=== PATIENT | female | born 1965 | race Caucasian/White ===

== ENCOUNTER 2019-11-14 08:14 | Outpatient (CLI) | payer OTHER, SELFPAY ==
--- NOTE | 2019-11-14 08:20 | MM_ITS ---
WS: [id number] BILATERAL SCREENING DIGITAL MAMMOGRAM WITH CAD HISTORY: SCREENING COMPARISON: 09/03/2018 and 06/13/2015 Bilateral CC and MLO views submitted. Computer aided detection analyzed. Breast composition: The breasts are heterogeneously dense, which may obscure small masses. No suspici ous masses, microcalcifications or architectural distortion. Benign calcification in the posterior RI GHT breast is stable. MM/[place] [id number] IMPRESSION: BI-RADS: 2-Benign FOLLOW UP: 1 Year Follow-up
== END 2019-11-14 08:15 | disposition home or self-care (01) ==
LOC: RADSHAW 08:14
PROVIDERS: PCP Family Medicine; Visit Provider Nurse Practitioner Family
DX: Z12.31 Encounter for screening mammogram for malignant neoplasm of breast (principal)
CPT/HCPCS: 77067

== ENCOUNTER 2020-01-04 10:15 | Outpatient (CLI) | payer SELFPAY ==
--- NOTE | 2020-01-04 10:23 | CT_ITS ---
WS: [id number] CT CHEST TECHNIQUE: Contrast enhanced CT of the chest with coronal and sagittal reformatted images. CLINICAL INFORMATION: PNEUMOTHORAX COMPARISON: CT November 2018, April 2018, September 2017 DLP: 583.[address] scans at [facility] use at least one of these dose optimization techniques: automat ed exposure control; mA and/or kV adjustment per patient size (includes targeted exams where dose is matched to clinical indication); or iterative reconstruction. FINDINGS: Advanced chronic emphysematous changes. Multiple previously described bilateral subcentimeter noncalc ified pulmonary nodules are stable compared to . New patchy groundglass opacity in the right upper lobe anteriorly. This is likely infectious or inflammatory. New pulmonary opacity left lower lo be measuring 7 mm. No mediastinal or hilar lymphadenopathy. No axillary lymphadenopathy. Aortic calcification. Proximal main pulmonary arteries are normal. Partially visualized hepatic cysts . Thoracic kyphosis. CT/CT chest w con* [id number] IMPRESSION: 1. New hazy ground glass opacity in the right upper lobe anteriorly with sligh t nodularity measuring 11 x 8 mm. This may be infectious or inflammatory. Recom mend 3 month follow-up. 2. New noncalcified nodular opacity left lower lobe measuring 7 mm. Recommend 3 month follow-up. 3. Additional subcentimeter noncalcified pulmonary nodules are stable. 4. No mediastinal or hilar lymphadenopathy. 5. Advanced chronic emphysematous changes. 6. Stable left hepatic cyst.
[2020-01-04] MEDS: iohexol 300 mg/mL 100 mL Btl IV (11:00)
== END 2020-01-04 10:16 | disposition home or self-care (01) ==
LOC: RADWPI 10:20
PROVIDERS: Family Provider Family Medicine; PCP Family Medicine; Visit Provider Thoracic Surgery (Cardiothoracic Vascular Surgery)
DX: J93.9 Pneumothorax, unspecified (principal); K76.89 Other specified diseases of liver; R91.8 Other nonspecific abnormal finding of lung field
CPT/HCPCS: 71260; Q9967

== ENCOUNTER 2021-01-17 10:11 | Outpatient (CLI) | payer OTHER, SELFPAY ==
--- NOTE | 2021-01-17 10:18 | MM_ITS ---
WS: [id number] BILATERAL DIGITAL SCREENING MAMMOGRAPHY WITH CAD CLINICAL INFORMATION: SCREENING HISTORY: Screening mammogram. No current complaints. COMPARISON: November 14, 2019 TECHNIQUE: Bilateral CC and MLO views. FINDINGS: The breasts are composed of heterogeneous fibroglandular density tissue, which can limit the detectio n of small underlying mass lesions. Benign punctate calcification right breast is stable. Stable dens e subareolar breast tissue. A few punctate calcifications right subareola. No suspicious mass, asymme try, calcifications, or architectural distortion. No evidence of malignancy. MM/[place] [id number] IMPRESSION: BI-RADS: 2-Benign FOLLOW UP: 1 Year Follow-up Recommend return to annual screening mammography.
== END 2021-01-17 10:12 | disposition home or self-care (01) ==
PROVIDERS: PCP Family Medicine; Visit Provider Nurse Practitioner Family
DX: Z12.31 Encounter for screening mammogram for malignant neoplasm of breast (principal)
CPT/HCPCS: 77067

== ENCOUNTER 2022-04-09 12:01 | Outpatient (CLI) | payer MEDICAID, SELFPAY ==
--- NOTE | 2022-04-09 12:10 | MM_ITS ---
WS: [id number] BILATERAL 3D TOMOSYNTHESIS DIGITAL SCREENING MAMMOGRAPHY WITH CAD CLINICAL INFORMATION: SCREENING HISTORY: Screening mammogram. No current complaints. COMPARISON: January 17 2021 TECHNIQUE: Bilateral CC and MLO views. FINDINGS: The breasts are composed of heterogeneous fibroglandular density tissue, which can limit the detectio n of small underlying mass lesions. No suspicious mass, asymmetry, calcifications, or architectural d istortion. No evidence of malignancy. A few incidental punctate calcifications. MM/[place] [id number] IMPRESSION: BI-RADS: 2-Benign FOLLOW UP: 1 Year Follow-up Recommend return to annual screening mammography.
== END 2022-04-09 12:02 | disposition home or self-care (01) ==
PROVIDERS: PCP Family Medicine; Visit Provider Family Medicine
DX: Z12.31 Encounter for screening mammogram for malignant neoplasm of breast (principal)
CPT/HCPCS: 77063; 77067

== ENCOUNTER 2023-04-10 15:19 | Outpatient (CLI) | payer MEDICAID, SELFPAY ==
--- NOTE | 2023-04-10 15:24 | MM_ITS ---
WS: [id number] BILATERAL 3D TOMOSYNTHESIS DIGITAL SCREENING MAMMOGRAPHY WITH CAD CLINICAL INFORMATION: SCREENING HISTORY: Screening mammogram. No current complaints. COMPARISON: 04/09/2022 TECHNIQUE: Bilateral CC and MLO views. FINDINGS: The breasts are composed of heterogeneous fibroglandular density tissue, which can limit the detectio n of small underlying mass lesions. No suspicious mass, asymmetry, calcifications, or architectural d istortion. No evidence of malignancy. A few incidental punctate and lucent centered calcifications. IMPRESSION: MM/[place] [id number] BI-RADS: 2-Benign FOLLOW UP: 1 Year Follow-up Recommend return to annual screening mammography.
== END 2023-04-10 15:20 | disposition home or self-care (01) ==
LOC: RAD 15:19
PROVIDERS: PCP Family Medicine; Visit Provider Family Medicine
DX: Z12.31 Encounter for screening mammogram for malignant neoplasm of breast (principal); R92.323 Mammographic fibroglandular density, bilateral breasts
CPT/HCPCS: 77063; 77067

== ENCOUNTER → 2023-06-25 16:45 | Outpatient (BNVA) | payer MEDICAID, SELFPAY | PROVIDERS: PCP Family Medicine; Referring Provider Family Medicine; Visit Provider Internal Medicine Pulmonary Disease | DX: J30.2 Other seasonal allergic rhinitis (principal); J43.2 Centrilobular emphysema | CPT/HCPCS: 36415; 82785; 85025; 86003 ==

== ENCOUNTER 2023-07-14 15:45 | Outpatient (CLI) | payer MEDICAID, SELFPAY ==
--- NOTE | 2023-07-14 16:00 | CT_ITS ---
WS: [id number] LDCT LUNG CANCER SCREENING HISTORY: Cancer Screen TECHNIQUE: Axial imaging performed from the apices to 1 cm below the costophrenic angles. Coronal and sagittal reformats are submitted with axial MIP series. All CT scans at [facility] use at least one of these dose optimization techniques: automated exposure control; mA and/or kV adjustment per patient size (includes targeted exams where dose is matched to clinical indication); or iterativ e reconstruction. DLP: 45.91 mGy.cm DIvol: Mean CTDIvol: 0.70 (mGy) COMPARISON: 01/04/2020 Diagnostic quality: Satisfactory Lungs: Moderate hyperexpansion and centrilobular emphysema. Mild biapical pleural thickening and scar ring. Reidentified is a curvilinear opacification in the RIGHT upper lobe that was also described in 2020. Opacification appears slightly more prominent today but this is probably due to the slice selec tion. Irregular opacification measures 9 x 7 mm. There is an additional 4 mm nodule RIGHT lower lobe, image 232 of series 5 which was also present on the prior exam. No new mass or pulmonary nodule. Heart: Normal size heart with no pericardial effusion.. Other findings: No mediastinal or hilar adenopathy. Mild atherosclerosis aorta. Pulmonary arteries eq ual size to the aorta. LEFT lobe hepatic cysts unchanged in size. No adrenal mass. Mild thoracic spon dylosis. IMPRESSION: CT/CT lung screening [id number] LUNG-RADS: 2-Benign Appearance or Behavior FOLLOW UP: 12 Month: Continue annual screening with LDCT OTHER FINDINGS (S MODIFIER): None.
== END 2023-07-14 15:46 | disposition home or self-care (01) ==
LOC: RAD 15:45
PROVIDERS: PCP Family Medicine; Visit Provider Internal Medicine Pulmonary Disease
DX: F17.210 Nicotine dependence, cigarettes, uncomplicated (principal); Z12.2 Encounter for screening for malignant neoplasm of respiratory organs
CPT/HCPCS: 71271

== ENCOUNTER 2023-07-22 12:44 | Outpatient (CLI) | payer MEDICAID, SELFPAY ==
[2023-07-22 13:11] VITALS: PULSE 84; RESP 18; O2SAT 99
[2023-07-22] MEDS: albuterol 2.5 mg/3 mL Neb INHALATION (13:11)
[2023-07-22 13:16] VITALS: PULSE 88
== END 2023-07-22 12:45 | disposition home or self-care (01) ==
LOC: RT 12:45
PROVIDERS: PCP Family Medicine; Visit Provider Internal Medicine Pulmonary Disease
DX: J43.2 Centrilobular emphysema (principal)
CPT/HCPCS: 94060; 94618; 94726; 94729; J7613

== ENCOUNTER 2024-06-13 09:18 | Outpatient (CLI) | payer MEDICAID, SELFPAY ==
--- NOTE | 2024-06-13 09:23 | MM_ITS ---
WS: [id number] BILATERAL SCREENING DIGITAL TOMOSYNTHESIS MAMMOGRAM WITH CAD HISTORY: SCREENING COMPARISON: 04/09/2022, 01/17/2021, 04/10/2023 Bilateral CC and MLO views with tomosynthesis and synthetic mammography submitted. Computer aided detection analyzed. Breast composition: The breasts are heterogeneously dense, which may obscure small masses. No suspicious masses, microcalcifications or architectural distortion. Benign calcification upper outer quadrant RIGHT breast. MM/MM scr tomosynthesis [id number] IMPRESSION: BI-RADS: 2 - Benign FOLLOW UP: 1 Year Follow-up
== END 2024-06-13 09:19 | disposition home or self-care (01) ==
PROVIDERS: PCP Family Medicine; Visit Provider Family Medicine
DX: Z12.31 Encounter for screening mammogram for malignant neoplasm of breast (principal); R92.333 Mammographic heterogeneous density, bilateral breasts; R92.1 Mammographic calcification found on diagnostic imaging of breast
CPT/HCPCS: 77063; 77067

== ENCOUNTER 2024-07-15 11:50 | Outpatient (CLI) | payer MEDICAID, SELFPAY ==
--- NOTE | 2024-07-15 11:58 | CT_ITS ---
WS: [id number] LDCT LUNG CANCER SCREENING HISTORY: HX OF TOBACCO USE TECHNIQUE: Axial imaging performed from the apices to 1 cm below the costophrenic angles. Coronal and sagittal reformats are submitted with axial MIP series. All CT scans at [facility] use at least one of these dose optimization techniques: automated exposure control; mA and/or kV adjustment per patient size (includes targeted exams where dose is matched to clinical indication); or iterative reconstruction. DLP: 44.29 mGy.cm DIvol: Mean CTDIvol: 0.70 (mGy) COMPARISON: 07/14/2023 Diagnostic quality: Satisfactory Lungs: Moderate pulmonary hyperexpansion with centrilobular emphysema. Biapical pleural thickening and scarring. Stable curvilinear opacification RIGHT upper lobe measures 7 mm. There is an additional subpleural lucency in the posterior LEFT upper lobe which is also stable. 2 mm nodule LEFT upper lobe, image 130 of series 5. No change in the 5 mm nodule in the RIGHT lower lobe. Heart: Normal size heart with no pericardial effusion.. Other findings: Mildly dilated pulmonary artery. Mild atherosclerosis aorta. Small hiatal hernia. Neither adrenal gland is very well visualized. No destructive bone lesions. CT/CT lung screening [id number] IMPRESSION: LUNG-RADS: 2-Benign Appearance or Behavior FOLLOW UP: 12 Month: Continue annual screening with LDCT OTHER FINDINGS (S MODIFIER): None.
== END 2024-07-15 11:51 | disposition home or self-care (01) ==
PROVIDERS: PCP Family Medicine; Visit Provider Family Medicine
DX: Z12.2 Encounter for screening for malignant neoplasm of respiratory organs (principal); Z87.891 Personal history of nicotine dependence; R91.8 Other nonspecific abnormal finding of lung field; J43.2 Centrilobular emphysema; J92.9 Pleural plaque without asbestos; I28.1 Aneurysm of pulmonary artery; I70.0 Atherosclerosis of aorta
CPT/HCPCS: 71271